=== PATIENT | female | born 1940 | race Caucasian/White ===

== ENCOUNTER 2018-05-19 09:26 | Day surgery (SDC) | payer MEDICARE, OTHER ==
[2018-05-17 15:47] VITALS: BMI 21.5
[~2018-05-19 09:26] MED LIST: LACTATED RINGERS 1,000 ML IV SCH; LIDOCAINE 1% 20 ML VIAL (10MG/ML) FOR IV START INTRADERMA PRN
[2018-05-19] MEDS ORDERED: LIDOCAINE 1% 20 ML VIAL (10MG/ML) FOR IV START INTRADERMA ONE (09:43)
[2018-05-19 09:50] VITALS: RESP 18; TEMP 97.3
[2018-05-19] MEDS ORDERED: GLYCOPYRROLATE 0.2 MG/ML 2 ML VIAL ONE (10:31)
[2018-05-19] MEDS ORDERED: PROPOFOL 10 MG/ML 20 ML VIAL IV ONE (10:31)
[2018-05-19] MEDS ORDERED: LIDOCAINE 1% INJ 10MG/ML (20 ML MDV) ONE (10:31)
--- NOTE | 2018-05-19 10:51 | P.PCN ---
Date of Procedure: 05/19/18 Procedure(s) Performed: Brief history: Patient is a pleasant scheduled for an elective upper endoscopy as well as colonoscopy as a part of evaluation of a history of GERD and chronic diarrhea of several years duration. Procedure performed: Esophagogastroduodenoscopy with biopsy Colonoscopy with random biopsies Preoperative diagnosis: Long-standing history of GERD Chronic diarrhea of 2 years duration Anesthesia: MAC Procedure: After informed consent was obtained from the patient was brought into the endoscopy unit and IV sedation was administered by anesthesia under continuous monitoring. Initially upper endoscopy was done. The Olympus GF 160 video endoscope was inserted inserted into the mouth and esophagus intubated without any difficulty and was gradually advanced into the stomach and duodenum and carefully examined. The bulb and second part of the duodenum appeared normal. Biopsies were done from the duodenum to rule out celiac disease. The scope was then withdrawn into the stomach adequately insufflated with air and upon careful examination the antrum had mild gastritis and biopsies were done from this area. The body, cardia and fundus appeared normal. The scope was then withdrawn into the esophagus. small hiatal hernia noted. The GE junction was located at 34 cm to the incisors. It appeared regular with no erythema erosions or ulcerations. there was a short segment of Hussein's esophagus extending 1 cm proximal to the GE junction and this was biopsied. Rest of the esophagus appeared normal. Patient tolerated the procedure well. At this time the patient continued to remain sedation. Initial digital rectal examination was normal. Olympus CF 160 video colonoscope was then inserted into the rectum and gradually advanced to the cecum without any difficulty. Careful examination was performed as the scope was gradually being withdrawn. The prep was excellent. The cecum, ascending colon, transverse colon, descending colon, sigmoid colon and rectum appeared normal. Retroflexion was performed in the rectum and grade 2 internal hemorrhoidse noted. and biopsies were done from the ascending and descending colon to rule out microscopic/ collagenous colitis. Patient tolerated the procedure well. Impression: 1. Upper endoscopy revealed small hiatal hernia, short segment Hussein's esophagus and mild antral gastritis 2. Colonoscopy was essentially within normal limits with no evidence of colitis or colorectal neoplasia Recommendations: Findings of this examination were discussed with the patient as well as her family. She was advised to follow with the biopsy results. the biopsy confirms the presence of Hussein's esophagus she can have a repeat upper endoscopy in 2 years.
[2018-05-19 11:15] VITALS: BP 146/73; PULSE 88
== END 2018-05-19 11:36 | disposition home or self-care (01) ==
LOC: ORWHC2ENDO 09:26
PROVIDERS: ATTEND Internal Medicine Gastroenterology
DX: K29.50 Unspecified chronic gastritis without bleeding (principal); K21.0 Gastro-esophageal reflux disease with esophagitis; K52.831 Collagenous colitis; K44.9 Diaphragmatic hernia without obstruction or gangrene; K22.70 Barrett's esophagus without dysplasia; K64.1 Second degree hemorrhoids; I10 Essential (primary) hypertension; Z79.899 Other long term (current) drug therapy; Z79.1 Long term (current) use of non-steroidal anti-inflammatories (NSAID); Z88.1 Allergy status to other antibiotic agents
CPT/HCPCS: 45380; 43239; J2001; J2704; 88305; 88313

== ENCOUNTER → 2018-11-18 | Outpatient (CLI) | payer MEDICARE, OTHER ==
--- NOTE | 2018-11-19 08:29 | CT ---
EXAMINATION TYPE: CT chest wo con DATE OF EXAM: 11/18/2018 COMPARISON: None HISTORY: Abnormal findings on diagnostic imaging, shortness of breath CT DLP: 227.[address] of the chest was performed with lung and mediastinal window settings submitted. The la ck of contrast limits evaluation of the vascular, mediastinal and parenchymal structures including th e upper abdomen. LUNGS: The lungs are hyperinflated compatible with COPD. Others of right apical parenchymal scar note d as well as scarring within the lower portion of the right upper lobe. No evidence for nodule or mas s. Additional linear scarring or atelectasis left lower lobe. No evidence of pleural effusion or cons olidation. MEDIASTINUM/VICENTE: Ectasia and atheromatous change of the thoracic aorta. Prominence of the pulmonary arteries likely on the basis of pulmonary arterial hypertension. There is evidence of mild cardiomega ly with coronary artery calcifications noted. No evidence for mediastinal mass. No lymph nodes grea ter than 1cm. UPPER ABDOMEN: No significant abnormality is seen. OTHER: Moderate fixed hiatal hernia noted. Mild loss of the vertebral body height involving several t horacic segments likely related to osteoporotic compression fractures. Degenerative changes noted sca ttered throughout as well. IMPRESSION: 1. COPD. 2. No evidence for pulmonary nodule mass or infiltrate.
== END | disposition home or self-care (01) ==
LOC: RADCTMAIN 15:29
PROVIDERS: ATTEND Family Medicine
DX: J44.9 Chronic obstructive pulmonary disease, unspecified (principal)
CPT/HCPCS: 71250